=== PATIENT | male | born 1960 | race Caucasian/White ===

== ENCOUNTER → 2017-12-01 | Outpatient (CLI) | payer BC | LOC: GMAB 10:22 | PROVIDERS: ATTEND Family Medicine | DX: Z00.00 Encounter for general adult medical examination without abnormal findings (principal) ==

== ENCOUNTER 2018-04-24 12:52 | Emergency (ER) | payer BC ==
[2018-04-24 13:04] VITALS: O2SAT 100
[2018-04-24] MEDS ORDERED: SODIUM CHLORIDE 0.9% 1000ML 1,000 ML IVS ONE ×2 (13:12→15:23)
[2018-04-24] MEDS ORDERED: ONDANSETRON INJ 4 MG/2 ML VIAL IV ONE (13:12)
--- NOTE | 2018-04-24 13:15 | ED.PDOC ---
History of Present Illness - General Chief Complaint: GI Problem Stated Complaint: N/V/D Time Seen by Provider: 04/24/18 13:11 Information Source: patient - History of Present Illness Initial Comments: patient comes in today with nausea, vomiting, and diarrhea since last night. Patient stated his food tasted fine and he had a hot dog on his own last night. He's had no recent travel, sick contacts, or questionable by mouth intake. This morning he has had a mild increased temp to 99 with intractable emesis and more than 5 episodes of loose stools. Patient is normally healthy and only has a past medical history of hypertension. He does not smoke or take drugs that he does drink a considerable amount of beer daily. He will not quantify it but states it can be over a sixpack a day. He denies any acute abdominal discomfort with the exception of some cramping with emesis and diarrhea. Abdominal Pain Onset Location: generalized abdomen Pain Radiation: no radiation Quality: mild Timing/Duration: 4-6 hours Improving Factors: nothing Worsening Factors: nothing Review of Systems - Review of Systems Constitutional: States: fever. Denies: chills, diaphoresis, weakness EENTM: States: no symptoms reported Respiratory: States: no symptoms reported. Denies: cough, short of breath, wheezing Cardiology: States: no symptoms reported. Denies: chest pain, edema, palpitations Gastrointestinal/Abdominal: States: see HPI Genitourinary: States: no symptoms reported Musculoskeletal: States: no symptoms reported Past Medical History (General) - Patient Medical History Hx Stroke: No Hx Cardiac Disorders: Yes - high cholesterol Hx Congestive Heart Failure: No Hx Hypertension: Yes Hx Diabetes: No Surgical History: other - Vaccination History Hx Influenza Vaccination: No Hx Pneumococcal Vaccination: No - Social History Hx Tobacco Use: Yes - Quit 2014 Family Medical History - Family History Father Living Status: Hx Family Cancer: Yes - Prostate w/ METS to stomach and liver Physical Exam - Physical Exam General Appearance: Alert, No apparent distress Eyes, Ears, Nose, Throat Exam: PERRL/EOMI, normal ENT inspection, TMs normal, pharynx normal, other - dry mucous membranes Neck: non-tender, full range of motion Respiratory: chest non-tender, lungs clear, normal breath sounds, no respiratory distress, no accessory muscle use Cardiovascular/Chest: normal peripheral pulses, regular rate, rhythm, no edema, no gallop, no JVD, no murmur Peripheral Pulses: No deficit Gastrointestinal/Abdominal: normal bowel sounds, non tender, soft Neurologic: alert, oriented x 3 Skin Exam: normal color Progress - Progress Progress: 04/24/18 15:33 04/24/18 13:12 IV Care:Saline Lock per Protoc QSHIFT 04/24/18 15:23 Promethazine HCl Inj [Phenergan Inj] 12.5 mg Sodium Chloride 0.9% 50Ml [NS 50ml] 50 ml IVPB ONCE Sodium Chloride 0.9% 1000ML [Ns 1000 ml] 1,000 ml IVS ONCE Laboratory Results WBC 11.5 K/mm3 (4.8-10.8) H 04/24/18 13:25 RBC 5.17 M/mm3 (4.70-6.10) 04/24/18 13:25 Hgb 16.0 gm/dL (14.0-18.0) 04/24/18 13:25 Hct 45.2 % (42.0-52.0) 04/24/18 13:25 MCV 87.5 fl (80.0-94.0) 04/24/18 13:25 MCH 31.0 pg (27.0-31.0) 04/24/18 13:25 MCHC 35.4 g/dL (33.0-37.0) 04/24/18 13:25 RDW 12.7 % (11.5-14.5) 04/24/18 13:25 Plt Count 304 K/mm3 (130-400) 04/24/18 13:25 MPV 6.9 fl (7.40-10.4) L 04/24/18 13:25 Absolute Neuts (auto) 10.00 K/uL (1.8-6.8) H 04/24/18 13:25 Absolute Lymphs (auto) 1.10 K/uL (1.0-3.4) 04/24/18 13:25 Absolute Monos (auto) 0.40 K/uL (0.2-0.8) 04/24/18 13:25 Absolute Eos (auto) 0.00 K/uL (0.0-0.4) 04/24/18 13:25 Absolute Basos (auto) 0.00 K/uL (0.0-0.1) 04/24/18 13:25 Neutrophils % 87.0 % (42.0-78.0) H 04/24/18 13:25 Lymphocytes % 9.2 % (20.0-50.0) L 04/24/18 13:25 Monocytes % 3.4 % (2.0-9.0) 04/24/18 13:25 Eosinophils % 0.0 % (1.0-5.0) L 04/24/18 13:25 Basophils % 0.4 % (0.0-2.0) 04/24/18 13:25 Sodium 132 mmol/L (135-145) L 04/24/18 13:25 Potassium 4.0 mmol/L (3.6-5.0) 04/24/18 13:25 Chloride 98 mmol/L (101-111) L 04/24/18 13:25 Carbon Dioxide 20 mmol/L (21-31) L 04/24/18 13:25 Anion Gap 18.0 (12-18) 04/24/18 13:25 BUN 20 mg/dL (7-18) H 04/24/18 13:25 Creatinine 0.72 mg/dL (0.6-1.3) 04/24/18 13:25 BUN/Creatinine Ratio 27.8 (10-20) H 04/24/18 13:25 Random Glucose 124 mg/dL (70-105) H 04/24/18 13:25 Serum Osmolality 268.6 mOsm/L (275-295) L 04/24/18 13:25 Calcium 9.9 mg/dL (8.4-10.2) 04/24/18 13:25 Total Bilirubin 2.2 mg/dL (0.2-1.0) H* 04/24/18 13:25 Direct Bilirubin 0.3 mg/dL (0-0.2) H 04/24/18 14:14 AST 30 IU/L (10-42) 04/24/18 13:25 ALT 41 IU/L (10-60) 04/24/18 13:25 Alkaline Phosphatase 61 IU/L (42-121) 04/24/18 13:25 Serum Total Protein 7.7 gm/dL (6.4-8.2) 04/24/18 13:25 Albumin 4.6 g/dl (3.2-5.5) 04/24/18 13:25 Globulin 3.1 gm/dL (2.3-3.5) 04/24/18 13:25 Albumin/Globulin Ratio 1.5 (1.1-1.9) 04/24/18 13:25 Amylase 44 U/L (28-100) 04/24/18 13:25 Lipase 22 U/L (22-51) 04/24/18 13:25 Patient Name: MELISSA GIBSON Gender: Male Date of : 1960 Referring Physician: ADEOLA CONNOR Organization: [facility] Accession Number: [id number] Requested Date: April 24, 2018 14:13 Report Status: Final Requested Procedure: 1 Procedure Description: Abdomen,Complete Modality: US Findings Reporting MD: Gerald Person Fellow MD: Not available Dictation Time: Electronic Communications Technician: Not available Renewal Specialist Date: Procedure: US ABDOMEN Exam Date: 04/24/2018 Ordering Provider: ADEOLA CONNOR Clinical Indication: n/v with elevated bilirubin Comparison: None Technique: Real-time ultrasonography was obtained over the abdominal viscera and service representative images were recorded. Findings: The liver is mildly enlarged at 16.9 cm. There is diffuse increased echogenicity of the liver consistent with fatty infiltration. There are no intrahepatic masses. There is no intrahepatic ductal dilatation. The gallbladder is normal in size and appearance. Negative Garcia's. There are no gallstones. There is no gallbladder wall thickening or pericholecystic fluid. The extrahepatic common duct is normal in size measuring 4 mm. The spleen is normal in size and contour. There is normal internal echogenicity of the spleen. There are no splenic masses. Pancreas is obscured by overlying bowel gas. The aorta has a normal appearance. The inferior vena cava has a normal appearance. The right kidney measures 11.6 cm in bipolar length. Cortical thickness and echogenicity are normal. There are no masses, calculi, or hydronephrosis. The left kidney measures 11.1 cm in bipolar length. Cortical thickness and echogenicity are normal. There are no masses, calculi, or hydronephrosis. There are couple cysts in the left kidney, largest measuring 11 mm. There is no ascites. Impression: 1. Hepatomegaly and hepatic steatosis. 2. Left renal cysts. 3. Negative gallbladder 04/24/18 17:19 after 2 L of NS and Zofran and phenergan patient felt much better. will discharge home with slow advancement of diet as tolerated Departure - Departure Clinical Impression: Gastroenteritis Disposition: Discharge to Home or Self Care Condition: Good Departure Forms: ED Discharge - Pt. Copy, Patient Portal Self Enrollment Diet: bland diet Referrals: SEJAL GUNTER MD [Primary Care Provider] - 1-2 Weeks Home Medications: Ambulatory Orders Atorvastatin Calcium [Lipitor] 10 mg PO DAILY 03/18/16 Lisinopril 20 mg PO DAILY 03/18/16 Meloxicam 15 mg PO DAILY 03/18/16 Amlodipine Besylate [Amlodipine Besylate] 5 mg PO DAILY 04/24/18 Ondansetron [Zofran Odt] 4 mg PO Q6HRS PRN 3 Days #10 tab 04/24/18 Additional Instructions: slow increase diet over the next couple of days. May use Zofran as needed for nausea. Slow return to normal diet. Return to ER for abdominal pain, severe intractable emesis, or change in symptoms. Follow-up with PCP for fatter liver seen and isolated elevated bilirubin
[2018-04-24] MEDS ORDERED: PROMETHAZINE HCL INJ 12.5 MG in SODIUM CHLORIDE 0.9% 50ML 50 ML IVPB ONE (15:23)
--- NOTE | 2018-04-24 15:26 | US ---
Procedure: US ABDOMEN Exam Date: 04/24/2018 Ordering Provider: ADEOLA CONNOR Clinical Indication: n/v with elevated bilirubin Comparison: None Technique: Real-time ultrasonography was obtained over the abdominal viscera and artist representative images were recorded. Findings: The liver is mildly enlarged at 16.9 cm. There is diffuse increased echogenicity of the liver consistent with fatty infiltration. There are no intrahepatic masses. There is no intrahepatic ductal dilatation. The gallbladder is normal in size and appearance. Negative Garcia's. There are no gallstones. There is no gallbladder wall thickening or pericholecystic fluid. The extrahepatic common duct is normal in size measuring 4 mm. The spleen is normal in size and contour. There is normal internal echogenicity of the spleen. There are no splenic masses. Pancreas is obscured by overlying bowel gas. The aorta has a normal appearance. The inferior vena cava has a normal appearance. The right kidney measures 11.6 cm in bipolar length. Cortical thickness and echogenicity are normal. There are no masses, calculi, or hydronephrosis. The left kidney measures 11.1 cm in bipolar length. Cortical thickness and echogenicity are normal. There are no masses, calculi, or hydronephrosis. There are couple cysts in the left kidney, largest measuring 11 mm. There is no ascites. Impression: 1. Hepatomegaly and hepatic steatosis. 2. Left renal cysts. 3. Negative gallbladder. Electronically signed by: Gerald Person MD 04/24/2018 3:25 PM CDT
[2018-04-24] MEDS ORDERED: PROMETHAZINE HCL INJ 25 MG/ML VIAL ONE (15:50)
[2018-04-24] MEDS ORDERED: SODIUM CHLORIDE 0.9% 50ML 50 ML ONE (15:51)
[2018-04-24 17:41] VITALS: BP 161/92; TEMP 98.5
== END 2018-04-24 17:41 | disposition home or self-care (01) ==
LOC: ER 12:52
DX: K52.9 Noninfective gastroenteritis and colitis, unspecified (principal); R16.0 Hepatomegaly, not elsewhere classified; E78.00 Pure hypercholesterolemia, unspecified; I10 Essential (primary) hypertension; Z87.891 Personal history of nicotine dependence
CPT/HCPCS: 36415; 76700; 80053; 82150; 82248; 83690; 85025; A4216; J2405; J7030

== ENCOUNTER → 2018-05-05 | Outpatient (CLI) | payer BC | LOC: GMATM 16:07 | PROVIDERS: ATTEND Nurse Practitioner Family | DX: E80.6 Other disorders of bilirubin metabolism (principal); R11.2 Nausea with vomiting, unspecified ==

== ENCOUNTER → 2018-05-08 | Outpatient (CLI) | payer BC ==
--- NOTE | 2018-05-08 12:14 | CT ---
EXAM DESCRIPTION: Abdomen/Pelvis w/o Contrast: Computed Tomography. CLINICAL HISTORY: VIRAL INTESTINAL INFECTION COMPARISON: None. TECHNIQUE: Spiral-axial scans 5 x 5 mm intervals through the abdomen and pelvis without oral or IV contrast. Coronal and sagittal 2.0 mm reconstructions. Total Exam DLP: 921.59 mGy-cm. This exam was performed according to our departmental CT dose-optimization program which includes automated exposure control, adjustment of the mA and/or kV according to patient size and/or use of iterative reconstruction technique; to reduce radiation dose to as low as reasonably achievable (ALARA). FINDINGS: Lung bases and pleura: Negative. Liver, stomach, spleen, and adrenal glands: Small sliding hiatal hernia. Solid organs are negative.. Pancreas, Gallbladder, and Ducts: Gallbladder is visualized. Otherwise unremarkable. Kidneys and Ureters: 2 mm radiodense stone in the inferior collecting system of the left kidney. Otherwise kidneys and ureters are negative. Mesentery: Unremarkable. Aorta: Minimal atherosclerotic calcification with no evidence of aneurysm including the bilateral common iliac arteries. Small periaortic nodes bilaterally. Small Bowel: Negative. Terminal Ileum/Cecum: Unremarkable. Appendix is visualized. Normal caliber. Normal density of the surrounding fat. Colon: Unremarkable except for minimal redundancy of the sigmoid colon. Pelvic Organs: Calcification of the prostate gland abutting the seminal vesicles and urinary bladder. No fluid in the anterior peritoneal reflection. No radiodense stones in the urinary bladder. Spine and Bony Pelvis: Spondylosis anteriorly L2-3 and L1-L2. Abdominal Wall/Back Soft Tissues: Negative. IMPRESSION: 1. No inflammatory changes or soft tissue masses in the peritoneum or retroperitoneum. No free peritoneal fluid. No free peritoneal air. 2. Small sliding hiatal hernia. 3. 2 mm nonobstructing radiodense stone in the inferior collecting system of the left kidney. CRITICAL COMMUNICATION: The findings were discussed directly by phone with Dr. Reynaldo Kim at approximately 1210 hours, on May 08, 2018. Electronically signed by: Fransisco Farrell MD 05/08/2018 12:13 PM CDT
== END ==
LOC: CT 11:12
PROVIDERS: ATTEND Family Medicine
DX: A08.4 Viral intestinal infection, unspecified (principal); K44.9 Diaphragmatic hernia without obstruction or gangrene; N20.0 Calculus of kidney